=== PATIENT | female | born 1990 | race Caucasian/White ===

== ENCOUNTER → 2020-04-24 | Outpatient (CLI) | payer OTHER ==
[2020-04-24 19:28] LABS: CHLAMYDIA DNA AMPLIFICATION NEGATIVE (NEGATIVE); GC DNA AMPLIFICATION NEGATIVE (NEGATIVE)
== END ==
LOC: M PLALAB 08:27
PROVIDERS: ATTEND Obstetrics & Gynecology
DX: Z12.4 Encounter for screening for malignant neoplasm of cervix (principal); N97.9 Female infertility, unspecified
CPT/HCPCS: 36415; 83516; 84443; 87661; G0123

== ENCOUNTER → 2020-06-14 | Outpatient (CLI) | payer OTHER ==
[~2020-06-14] MED LIST: ISOVUE-370 76% 100ML VIAL As Ordered ONE
--- NOTE | 2020-06-14 13:26 | REP ---
INDICATION: INFERTILITY. COMPARISON: None. TECHNIQUE: The endometrium is cannulated by the attending dispatch supervisor. Fluoroscopic guidance is provided during contrast injection and intermittent spot filming is acquired. 0.5 minutes of fluoroscopy time is utilized. FINDINGS: There is opacification of a normal shaped endometrial cavity. No filling defect or synechia is appreciated. The isthmic and ampullary segments of fallopian tubes opacify promptly and symmetrically. Bilateral tubal patency is documented. IMPRESSION: Normal hysterosalpingogram documenting bilateral tubal patency. <Electronically signed by Scott Batres > 06/14/20 [id number]
== END ==
LOC: M RADPRO 11:58
PROVIDERS: ATTEND Obstetrics & Gynecology
DX: N97.9 Female infertility, unspecified (principal)
CPT/HCPCS: 58340; 74740; Q9967

== ENCOUNTER → 2021-02-05 | Outpatient (CLI) | payer OTHER ==
--- NOTE | 2021-02-05 11:25 | REP ---
INDICATION: INFERTILITY COMPARISON: None. TECHNIQUE: Transvaginal B-mode ultrasound examination. FINDINGS: Heterogeneous myomatous uterus measures 7.2 x 3.6 x 5.0 cm and includes right anterior intramural fibroid measuring 7 mm maximal diameter, pedunculated right lateral fibroid measuring 1.6 cm maximal diameter, and left anterior subserosal fibroid measuring 1.1 cm maximal diameter. Endometrial complex is normal in appearance and measures 4 mm thickness. Right ovary measures 2.5 x 1.5 x 3.1 cm and includes approximately 26 subcentimeter follicles between 1.1 and 8.5 mm; R I = 0.65. Left ovary measures 2.4 x 2.2 x 3.0 cm and includes approximately 14 subcentimeter follicles between 1.5 and 8.4 mm; R I = 0.49. No pelvic fluid or adnexal mass lesion IMPRESSION: 1. Anteverted uterus with myomatous changes as described above. 2. Bilateral ovaries containing subcentimeter follicles. <Electronically signed by Jay Mohan > 02/05/21 [id number]
[2021-02-05 11:57] LABS: HCG, SERUM QUANTITATIVE < 1.0 MIU/ML
[2021-02-05 12:03] LABS: PROGESTERONE 0.32 NG/ML
[2021-02-05 12:04] LABS: ESTRADIOL 22.4 PG/ML; FOLLICLE STIMULATING HORMONE 7.2 mIU/mL; LUTEINIZING HORMONE 5.4 mIU/mL
== END ==
LOC: M RAD 09:57
PROVIDERS: ATTEND Obstetrics & Gynecology Reproductive Endocrinology
DX: Z31.83 Encounter for assisted reproductive fertility procedure cycle (principal)

== ENCOUNTER → 2021-02-25 | Outpatient (CLI) | payer OTHER ==
--- NOTE | 2021-02-25 09:09 | REP ---
INDICATION: INFERTILITY- STAT LABS FIRST. COMPARISON: Comparison sonography February 05, 2021.. TECHNIQUE: Transvaginal pelvic sonography. FINDINGS: Uterine dimensions are normal at 7.7 x 3.8 x 5.0 cm. Endometrial stripe is 0.76 cm. There are several hypoechoic areas in the myometrium which may reflect fibroids. These measure 1.0, 0.7, and 1.7 cm in greatest diameter respectively. These presumed fibroids are unchanged. No free fluid is seen. The overall dimensions of the right ovary today are 3.7 x 2.0 x 3.7 cm. There are 5 follicles in right ovary greater than a cm measured as follows: 1.3 x 0.7, 1.4 x 0.7, 1.2 x 1.1, 1.4 x 0.5, and 1.1 x 0.7 cm. In addition, the right ovary contains 19 follicles ranging in size from 0.3-0.9 cm. The overall dimensions of the left ovary are 4.6 x 2.9 x 4.3 cm. There are 2 follicles in the left ovary greater than a cm measured as follows: 1.1 x 0.5 and 1.1 x 0.4 cm. In addition the left ovary contains approximately 35 follicles ranging in size from 0.3-0.9 cm. IMPRESSION: Several small fibroids. Ovarian follicle study as above. <Electronically signed by Scott Batres > 02/25/21 [id number]
[2021-02-25 11:01] LABS: LUTEINIZING HORMONE 0.4 mIU/mL; PROGESTERONE 1.69 NG/ML
== END ==
LOC: M RAD 07:49
PROVIDERS: ATTEND Obstetrics & Gynecology Reproductive Endocrinology
DX: N97.9 Female infertility, unspecified (principal)

== ENCOUNTER → 2021-02-27 | Outpatient (CLI) | payer OTHER ==
--- NOTE | 2021-02-27 09:27 | REP ---
INDICATION: INFERTILITY- STAT LABS FIRST. COMPARISON: 02/25/2021 TECHNIQUE: Endovaginal probe examination. FINDINGS: Uterus is anteverted measuring 7.8 x 3.8 x 4.6 cm. A subserosal fundal hypoechoic focus 1.8 x 1.7 x 1.3 cm. Towards the left is a 9 mm hypoechoic focus and in the midline a 5 x 5 mm focus all suggesting fibroids. The endometrial stripe has a normal 3 line appearance and thickness of 6 mm overall. A trace amount of free fluid in the cul-de-sac. Right ovary: 5.2 x 3.5 x 5 cm. The technologist today has documented 36 follicles at 10 mm or greater size. The largest of these are 18 mm, most are in the 10-13 mm range. In addition there were 33 follicles in the 2-9 mm range. Left ovary: 5.7 x 3.8 x 3.7 cm. The technologist today as documented 32 follicles at 10 mm or greater size. The 2 largest are 23 and 20 mm with several at 15-17 mm and the remainder at 10-14 mm. In addition there were 33 follicles in the 3-9 mm range. IMPRESSION: 1. Significant change in the ovarian appearance since 2 days ago now with 36 follicles greater than 10 mm size on the right and 32 follicles at 10 mm or greater size on the left. There also 33 right and left sided follicles that are subcentimeter. Trace free fluid. 2. Uterus anteverted with normal endometrial stripe. There is a serosal fundal fibroid 1.8 x 1.7 cm and 2 other sub cm hypoechoic foci in the uterus suggesting fibroids. <Electronically signed by Albaro Ruiz > 02/27/21 0924
[2021-02-27 09:51] LABS: ESTRADIOL 2514.6 PG/ML; LUTEINIZING HORMONE < 0.1 mIU/mL; PROGESTERONE 3.76 NG/ML
== END ==
LOC: M RAD 08:15
PROVIDERS: ATTEND Obstetrics & Gynecology Reproductive Endocrinology
DX: N97.9 Female infertility, unspecified (principal)

== ENCOUNTER → 2021-03-01 | Outpatient (CLI) | payer OTHER ==
--- NOTE | 2021-03-01 10:10 | REP ---
INDICATION: OVARIAN DYSFUNCTION *STAT LABS 1ST, STAT US 2ND*. COMPARISON: Two days ago TECHNIQUE: Transvaginal scanning FINDINGS: The uterus is unchanged. The right ovary measures 4.1 x 4.7 x 6 cm and the left ovary measures 6.2 x 4.7 x 4.9 cm. Previously, the right ovary measured 5.2 x 3.5 x 5 cm and the left ovary measured 5.7 x 3.8 x 3.7 cm. In the right ovary there are 17 follicles in the 2-9 mm range and in the left ovary there are 23 follicles in the 3-9 mm range. In the right ovary there are 25 follicles in the 1-2 cm range and in the left ovary there are 39 follicles in the 1-2 cm range. IMPRESSION: As above <Electronically signed by Sheldon Mcmansu > 03/01/21 [id number]
[2021-03-01 10:48] LABS: ESTRADIOL 5582.6 PG/ML; LUTEINIZING HORMONE < 0.1 mIU/mL; PROGESTERONE 6.33 NG/ML
== END ==
LOC: M RAD 09:01
PROVIDERS: ATTEND Obstetrics & Gynecology Reproductive Endocrinology
DX: E28.9 Ovarian dysfunction, unspecified (principal); Z20.822 Contact with and (suspected) exposure to COVID-19
CPT/HCPCS: 36415; 76830; 82670; 83002; 84144; U0003

== ENCOUNTER → 2021-03-01 | Outpatient (CLI) | payer OTHER | LOC: M LABSMTC 09:58 | PROVIDERS: ATTEND Obstetrics & Gynecology Reproductive Endocrinology | DX: Z20.822 Contact with and (suspected) exposure to COVID-19 (principal) ==

== ENCOUNTER → 2021-04-16 | Outpatient (CLI) | payer OTHER ==
--- NOTE | 2021-04-16 09:09 | REP ---
INDICATION: INFERTILITY-LAB 1ST COMPARISON: 03/01/2021 TECHNIQUE: Transvaginal examination for better evaluation of the endometrium and adnexa. FINDINGS: Anteverted uterus measures 7.3 x 3.5 x 4.9 cm. The endometrial complex measures 6.1 mm thickness excluding trace amount of endocervical fluid. Subcentimeter anterior intramural fibroid measuring 7 mm maximal diameter identified along with 2.1 cm right fundal exophytic/subserosal fibroid noted. Right ovary measures 2.4 x 1.5 x 2.0 cm and includes 10.3 x 7.4 mm and 10.8 x 9.6 mm follicles along with 20 subcentimeter follicles measuring between 2.0 and 6.8 mm. Left ovary measures 3.0 x 2.4 x 1.8 cm and includes approximately 21 subcentimeter follicles between 1.9 and 6.4 mm. IMPRESSION: Suspected myomatous changes to the uterus. Primarily subcentimeter follicles noted bilaterally. <Electronically signed by Jay Mohan > 04/16/21 0930
[2021-04-16 10:11] LABS: HCG, SERUM QUANTITATIVE < 1.0 MIU/ML
[2021-04-16 10:18] LABS: LUTEINIZING HORMONE 4.9 mIU/mL; PROGESTERONE 0.21 NG/ML
[2021-04-16 10:19] LABS: FOLLICLE STIMULATING HORMONE 6.1 mIU/mL
== END ==
LOC: M RAD 08:15
PROVIDERS: ATTEND Obstetrics & Gynecology Reproductive Endocrinology
DX: N97.9 Female infertility, unspecified (principal)

== ENCOUNTER → 2021-04-23 | Outpatient (CLI) | payer OTHER ==
--- NOTE | 2021-04-23 09:00 | REP ---
INDICATION: INFERTILITY- STAT LABS FIRST. COMPARISON: 04/16/2021. TECHNIQUE: Transvaginal pelvic ultrasound follicle study performed. FINDINGS: The uterus measures 7.9 x 3.1 x 4.8 cm. The endometrial echo complex measures 9 mm in AP dimension. Fibroid changes are again seen of the uterus, a right lateral fibroid measures 2 cm in diameter. The right ovary measures 2.9 x 1.9 x 2.7 cm. Multiple subcentimeter follicles are seen, approximately 12 follicles measure between 2 and 9 mm. Left ovary measures 2.6 x 2.0 x 2.7 cm. Multiple subcentimeter follicles are seen, approximately 11 follicles measure between 3 and 7 mm. IMPRESSION: Multiple subcentimeter follicles seen in both ovaries, with no follicle greater than 1 cm. <Electronically signed by Dheeraj Membreno > 04/23/21 [id number]
[2021-04-23 09:39] LABS: ESTRADIOL 101.6 PG/ML; LUTEINIZING HORMONE 7.7 mIU/mL; PROGESTERONE 0.21 NG/ML
== END ==
LOC: M RAD 08:05
PROVIDERS: ATTEND Obstetrics & Gynecology Reproductive Endocrinology
DX: Z31.83 Encounter for assisted reproductive fertility procedure cycle (principal)

== ENCOUNTER → 2021-05-06 | Outpatient (CLI) | payer OTHER ==
[2021-05-06 10:15] LABS: ESTRADIOL 164.1 PG/ML; PROGESTERONE 48.6 NG/ML
== END ==
LOC: M LAB 07:43
PROVIDERS: ATTEND Obstetrics & Gynecology Reproductive Endocrinology
DX: Z31.49 Encounter for other procreative investigation and testing (principal)

== ENCOUNTER → 2021-05-10 | Outpatient (CLI) | payer OTHER ==
[2021-05-10 10:20] LABS: PROGESTERONE 42.55 NG/ML
== END ==
LOC: M LAB 08:39
PROVIDERS: ATTEND Obstetrics & Gynecology Reproductive Endocrinology
DX: Z32.00 Encounter for pregnancy test, result unknown (principal)

== ENCOUNTER → 2021-05-13 | Outpatient (CLI) | payer OTHER ==
[2021-05-13 09:00] LABS: THYROID STIMULATING HORMONE 0.77 uIU/ML (0.358-3.740)
[2021-05-13 11:45] LABS: ESTRADIOL 97.8 PG/ML; PROGESTERONE 44.66 NG/ML
== END ==
LOC: M LAB 07:41
PROVIDERS: ATTEND Obstetrics & Gynecology Reproductive Endocrinology
DX: O09.00 Supervision of pregnancy with history of infertility, unspecified trimester (principal); Z3A.00 Weeks of gestation of pregnancy not specified

== ENCOUNTER → 2021-05-20 | Outpatient (CLI) | payer OTHER ==
--- NOTE | 2021-05-20 16:43 | REP ---
INDICATION: ULTRASOUND - LABS AFTER. COMPARISON: None. TECHNIQUE: Transvaginal ultrasound FINDINGS: The uterus measures 7.2 x 4.4 x 5.2 cm. There appear to be 2 intrauterine gestational sacs with a tiny anechoic structure seen in each of the gestational sacs consistent with yolk sacs. The twin gestation appears to be in the left cornua. No definite pole is seen with in either gestational sac. Doppler interrogation of each gestational sac shows no evidence of cardiac activity. The mean gestational sac diameter of which the technologist labeled as gestation A is consistent with a 4 week 3 day gestational age due to its 6 mm size gestational sac B measured 4 mm and was too small for an estimated gestational age. IMPRESSION: Evidence of early dichorionic diamniotic twin gestation, however, close follow-up is recommended. <Electronically signed by Sheldon Mcmanus > 05/20/21 [id number]
[2021-05-20 18:52] LABS: ESTRADIOL 241.3 PG/ML; PROGESTERONE 33.7 NG/ML
== END ==
LOC: M RAD 15:26
PROVIDERS: ATTEND Obstetrics & Gynecology Reproductive Endocrinology
DX: Z32.01 Encounter for pregnancy test, result positive (principal)

== ENCOUNTER → 2021-05-27 | Outpatient (CLI) | payer OTHER ==
[2021-05-27 13:08] LABS: ESTRADIOL 247.3 PG/ML; PROGESTERONE 31.5 NG/ML
--- NOTE | 2021-05-27 13:53 | REP ---
INDICATION: PREG, 1ST TRI/ LABS 1ST, US 2ND. COMPARISON: 05/20/2021. TECHNIQUE: Transvaginal pelvic ultrasound performed. FINDINGS: There is a living dichorionic diamniotic twin gestation. Estimated gestational age is 5 weeks 6 days, EDC 01/21/2022. Multiple uterine fibroids are present. The largest is in the right fundus measuring 2.3 x 2.0 x 2.2 cm. The ovaries are normal in appearance, blood flow is seen in each ovary with duplex Doppler evaluation, with no torsion. Fetus a crown-rump length 8 mm corresponds to 6 weeks 5 days gestational age, heart rate 126 beats per minute. Fetus B crown-rump length 6 mm corresponds to 6 weeks 3 days gestational age, heart rate 122 beats per minute. There is no subchorionic hemorrhage. IMPRESSION: Live intrauterine diamniotic dichorionic twin gestation. <Electronically signed by Dheeraj Membreno > 05/27/21 [id number]
== END ==
LOC: M RAD 11:31
PROVIDERS: ATTEND Obstetrics & Gynecology Reproductive Endocrinology
DX: O30.041 Twin pregnancy, dichorionic/diamniotic, first trimester (principal); O09.00 Supervision of pregnancy with history of infertility, unspecified trimester; O34.11 Maternal care for benign tumor of corpus uteri, first trimester; Z3A.01 Less than 8 weeks gestation of pregnancy

== ENCOUNTER → 2021-06-03 | Outpatient (CLI) | payer OTHER ==
--- NOTE | 2021-06-03 08:28 | REP ---
INDICATION: (+) PREG W/ H/O INFERTILITY EVAL- LABS AFTER. COMPARISON: 05/27/2021 TECHNIQUE: Endovaginal probe FINDINGS: The study again shows a dichorionic diamniotic twin . Fetus A shows a crown-rump length of 1.6 cm corresponding to 8 weeks. There is a gestational sac with a yolk sac within. heart activity noted at 163 bpm. No evidence of a subchorionic bleed. Fetus B shows a crown-rump length of 1.1 cm corresponding to 7 weeks 2 days. heart activity is 150 bpm with a gestational sac containing a yolk sac. No subchorionic bleed around twin B sac. Again noted are multiple of fibroids present, the largest towards the right side of the fundus 2.5 x 2.5 cm. IMPRESSION: 1. Dichorionic diamniotic twin gestation with twin A measuring at 8 weeks gestation and with heart rate 163. Twin B measuring at 7 weeks 2 days gestation with heart rate 150. 2. No subchorionic bleed. Yolk sacs are identified. 3. Multiple fibroids again noted. <Electronically signed by Albaro Ruiz > 06/03/21 0807
[2021-06-03 12:58] LABS: ESTRADIOL 329.4 PG/ML; PROGESTERONE 49.39 NG/ML
== END ==
LOC: M RAD 07:12
PROVIDERS: ATTEND Obstetrics & Gynecology Reproductive Endocrinology
DX: Z32.01 Encounter for pregnancy test, result positive (principal)

== ENCOUNTER 2021-10-08 12:41 | Outpatient (CLI) | payer OTHER ==
[~2021-10-08] VITALS: Ht 172.7 cm; Wt 71.2 kg
[2021-10-08] MEDS ORDERED: SILVER NITRATE APPLICATOR TOP ONE (14:15)
== END 2021-10-08 15:25 | disposition home or self-care (01) ==
LOC: M LDO 12:41
PROVIDERS: ATTEND Obstetrics & Gynecology
DX: O26.852 Spotting complicating pregnancy, second trimester (principal); O30.042 Twin pregnancy, dichorionic/diamniotic, second trimester; O32.1XX1 Maternal care for breech presentation, fetus 1; O32.1XX2 Maternal care for breech presentation, fetus 2; Z98.870 Personal history of in utero procedure during pregnancy; Z3A.25 25 weeks gestation of pregnancy
CPT/HCPCS: 59025; G0463

== ENCOUNTER → 2021-11-06 | Outpatient (CLI) | payer OTHER ==
[2021-11-06 13:28] LABS: HEMATOCRIT 33.9 % (36.0-47.0); HEMOGLOBIN 11.2 g/dl (12.0-15.5); MEAN CORPUSCULAR HEMOGLOBIN 29.2 pg (27.0-33.0); MEAN CORPUSCULAR VOLUME 88.5 fl (80.0-96.0); PLATELET COUNT, AUTOMATED 267 10^3/uL (150-450); RED BLOOD COUNT 3.83 10^6/uL (4.00-5.40); WHITE BLOOD COUNT 9.4 10^3/uL (4.0-10.0)
== END ==
LOC: M PLALAB 08:40
PROVIDERS: ATTEND Obstetrics & Gynecology
DX: O09.813 Supervision of pregnancy resulting from assisted reproductive technology, third trimester (principal)

== ENCOUNTER → 2021-11-12 | Outpatient (CLI) | payer OTHER | LOC: M LAB 07:09 | PROVIDERS: ATTEND Obstetrics & Gynecology | DX: O30.043 Twin pregnancy, dichorionic/diamniotic, third trimester (principal); Z3A.00 Weeks of gestation of pregnancy not specified ==

== ENCOUNTER → 2021-11-20 | Outpatient (CLI) | payer OTHER | LOC: M WHC 10:57 | PROVIDERS: ATTEND Obstetrics & Gynecology | DX: O30.043 Twin pregnancy, dichorionic/diamniotic, third trimester (principal); Z3A.31 31 weeks gestation of pregnancy ==

== ENCOUNTER → 2021-12-10 | Outpatient (CLI) | payer OTHER | LOC: M WHC 14:16 | PROVIDERS: ATTEND Obstetrics & Gynecology | DX: O30.043 Twin pregnancy, dichorionic/diamniotic, third trimester (principal); Z3A.35 35 weeks gestation of pregnancy ==

== ENCOUNTER → 2021-12-16 | Outpatient (REF) | payer OTHER | LOC: M PLALAB 09:39 | PROVIDERS: ATTEND Advanced Practice Midwife | DX: Z53.9 Procedure and treatment not carried out, unspecified reason (principal) ==

== ENCOUNTER → 2021-12-16 | Outpatient (REF) | payer OTHER ==
[~2021-12-16] MED LIST changes: +ECOT81TA5 PO; -ISOVUE-370 76% 100ML VIAL As Ordered ONE; +PRENTAB9 PO; +TUMS500C PO
== END ==
LOC: M SFHCWAGY 12:51
PROVIDERS: ATTEND Advanced Practice Midwife
DX: Z36.85 Encounter for antenatal screening for Streptococcus B (principal)
CPT/HCPCS: 87081; G0463

== ENCOUNTER 2021-12-21 21:39 | Inpatient (IN) | payer OTHER ==
[~2021-12-21] VITALS: Ht 172.7 cm; Wt 77.3 kg
[2021-12-21 22:10] VITALS: BP 130/82
[2021-12-21] MEDS ORDERED: ECOT81TA5 PO (22:10)
[2021-12-21] MEDS ORDERED: TUMS500C PO (22:10)
[2021-12-21] MEDS ORDERED: PRENTAB9 PO (22:10)
[2021-12-21] MEDS ORDERED: CARBOPROST TROMETHAMINE 250 MCG/ML AMP IM PRN (22:50)
[2021-12-21] MEDS ORDERED: TRANEXAMIC ACID INJection 1,000 MG in NS 100 ML IV PRN (22:50)
[2021-12-21] MEDS ORDERED: OXYTOCIN DRIP 30 UNITS in IV 1 EA IV PRN ×4 (22:50)
[2021-12-21] MEDS ORDERED: LACTATED RINGER'S 1000 ML IV PRN (22:50)
[2021-12-21] MEDS ORDERED: METHYLERGONOVINE MALEATE 0.2 MG/ML VIAL (J2210) IM PRN (22:50)
[2021-12-21 23:43] LABS: HEMATOCRIT 31.3 % (36.0-47.0); HEMOGLOBIN 10.2 g/dl (12.0-15.5); MEAN CORPUSCULAR HEMOGLOBIN 26.2 pg (27.0-33.0); MEAN CORPUSCULAR HGB CONC 32.6 g/dl (32.0-36.5); MEAN CORPUSCULAR VOLUME 80.5 fl (80.0-96.0); PLATELET COUNT, AUTOMATED 293 10^3/uL (150-450); RED BLOOD COUNT 3.89 10^6/uL (4.00-5.40); WHITE BLOOD COUNT 11.3 10^3/uL (4.0-10.0)
[2021-12-22] VITALS (78 sets, daily range): BP systolic 92–140; BP diastolic 55–86
[2021-12-22] MEDS ORDERED: OXYTOCIN DRIP 30 UNITS in IV 1 EA IV SCH ×2 (01:50→23:30)
[2021-12-22] MEDS: LR 1,000 ML IV SCH ×3 (03:45→15:14)
[2021-12-22] MEDS ORDERED: FENTANYL 2MCG/ML ROPIVACAINE 0.2% IN 0.9% NACL 100ML IVBAG As Ordered ONE (08:20)
[2021-12-22] MEDS ORDERED: NALOXONE INJ 0.4MG/1ML VIAL (J2310 PER 1MG) IV PRN (09:05)
[2021-12-22] MEDS ORDERED: LACTATED RINGER'S 1000 ML IV PRN (09:05)
[2021-12-22] MEDS ORDERED: EPIDURAL/PCA KEYS XX PRN (09:05)
[2021-12-22] MEDS ORDERED: EPIDURAL COMMENT XX SCH (09:05)
[2021-12-22] MEDS ORDERED: ONDANSETRON 4MG/2ML VIAL IV PRN (09:05)
[2021-12-22] MEDS ORDERED: REFRIGERATOR IV KEYS XX PRN (09:05)
[2021-12-22] MEDS ORDERED: diphenhydrAMINE 50MG/ML VIAL (J1200) IV PRN (09:05)
[2021-12-22] MEDS ORDERED: ePHEDrine SULFATE 25 MG/5 ML(5MG/ML) SYRINGE IV PRN (09:05)
[2021-12-22] MEDS: FENTANYL/ROPIVACAINE/NACL BAG 100 ML EPIDURAL SCH ×2 (09:21→16:34)
[2021-12-22] MEDS ORDERED: diphenhydrAMINE 50MG/ML VIAL (J1200) IV ONE ×2 (11:50→17:35)
[2021-12-23] VITALS (21 sets, daily range): BP systolic 94–136; BP diastolic 53–84
[2021-12-23] MEDS: FENTANYL/ROPIVACAINE/NACL BAG 100 ML EPIDURAL SCH (00:18)
[2021-12-23] MEDS: LR 1,000 ML IV SCH (01:27)
[2021-12-23] MEDS ORDERED: LIDOCAINE 2% W/EPINEPHRINE 20ML VIAL **PRES FREE As Ordered ONE (02:51)
[2021-12-23] MEDS ORDERED: BICITRA 30ML SOLN UDC As Ordered ONE (02:56)
[2021-12-23] MEDS ORDERED: AZITHROMYCIN INJ 500MG VIAL As Ordered ONE (02:56)
[2021-12-23] MEDS ORDERED: ceFAZolin 2 GM/D5W 50 ML IV BAG (J0690 PER 500MG) As Ordered ONE (02:56)
[2021-12-23] MEDS ORDERED: fentaNYL 100 MCG/2 ML INJECTION IV PRN (03:10)
[2021-12-23] MEDS ORDERED: oxyCODONE 5MG TAB PO PRN (03:10)
[2021-12-23] MEDS ORDERED: ONDANSETRON 4MG/2ML VIAL IV PRN ×3 (03:10→04:30)
[2021-12-23] MEDS ORDERED: MEPERIDINE INJ 25 MG/ML VIAL (J2175) IV PRN (03:10)
[2021-12-23] MEDS ORDERED: HYDROMORPHONE HCL 0.5 MG/ 0.5 ML SYRINGE (J1170 PER 1) IV PRN (03:10)
[2021-12-23] MEDS ORDERED: fentaNYL 100 MCG/2 ML INJECTION As Ordered ONE (03:32)
[2021-12-23] MEDS ORDERED: ONDANSETRON 4MG/2ML VIAL As Ordered ONE (03:49)
[2021-12-23] MEDS ORDERED: dexameTHASONE 4 MG/ML 1ML VIAL (J1100 PER 1MG) As Ordered ONE (03:49)
[2021-12-23] MEDS ORDERED: BUPIVACAINE HCL 0.25% 10ML VIAL SC ONE (03:50)
[2021-12-23] MEDS ORDERED: OXYTOCIN INJ 10 UNITS/ML VIAL (J2590) As Ordered ONE ×2 (03:57→04:25)
[2021-12-23] MEDS ORDERED: NALOXONE INJ 0.4MG/1ML VIAL (J2310 PER 1MG) IV PRN ×2 (03:58)
[2021-12-23] MEDS ORDERED: METOCLOPRAMIDE INJ 10MG/2ML VIAL (J2765 PER 1) IV PRN (03:58)
[2021-12-23] MEDS ORDERED: diphenhydrAMINE 50MG/ML VIAL (J1200) IV PRN (03:58)
[2021-12-23] MEDS ORDERED: MORPHINE PRES-FREE INJ 10 MG/10 ML VIAL As Ordered ONE (04:26)
[2021-12-23] MEDS ORDERED: KETOROLAC 60MG 2ML VIAL As Ordered ONE (04:27)
[2021-12-23] MEDS ORDERED: RHOGAM 300 MCG (1500 IU) INJ (J2790) IM SCH (04:30)
[2021-12-23] MEDS ORDERED: DOCUSATE SODIUM 100MG CAPSULE PO PRN (04:30)
[2021-12-23] MEDS ORDERED: MEASLES,MUMPS,RUBELLA VACCINE INJ (MMR-II) (90707) SC SCH (04:30)
[2021-12-23] MEDS ORDERED: OXYTOCIN DRIP 30 UNITS in IV 1 EA IV SCH (04:30)
[2021-12-23 04:54] LABS: HEMATOCRIT 28.2 % (36.0-47.0); HEMOGLOBIN 8.8 g/dl (12.0-15.5); MEAN CORPUSCULAR HEMOGLOBIN 25.7 pg (27.0-33.0); MEAN CORPUSCULAR HGB CONC 31.2 g/dl (32.0-36.5); MEAN CORPUSCULAR VOLUME 82.5 fl (80.0-96.0); PLATELET COUNT, AUTOMATED 225 10^3/uL (150-450); RED BLOOD COUNT 3.42 10^6/uL (4.00-5.40); WHITE BLOOD COUNT 20.3 10^3/uL (4.0-10.0)
[2021-12-23] MEDS ORDERED: OXYTOCIN 30 UNITS IN 0.9% NaCl 500ML IV BAG (J2590) As Ordered ONE (04:59)
[2021-12-23 05:09] LABS: INR 1.01; PARTIAL THROMBOPLASTIN TIME 25.6 SECONDS (25.9-37.0); PROTHROMBIN TIME 13.7 SECONDS (12.7-14.5)
[2021-12-23] MEDS: ACETAMINOPHEN 500 MG TAB PO SCH ×4 (05:36→22:08)
[2021-12-23] MEDS: PRENATAL VITAMINS CHEWABLE TABLET PO SCH (09:00)
[2021-12-23] MEDS ORDERED: METHYLERGONOVINE MALEATE 0.2 MG/ML VIAL (J2210) ONE (10:35)
[2021-12-23] MEDS: KETOROLAC 30 MG/ML 1ML VIAL IV SCH ×3 (10:55→22:08)
[2021-12-24 02:00] VITALS: BP 110/69
[2021-12-24] MEDS: ACETAMINOPHEN 500 MG TAB PO SCH ×4 (05:14→22:54)
[2021-12-24 05:47] VITALS: BP 104/58
[2021-12-24] MEDS: oxyCODONE 5MG TAB PO PRN ×3 (06:04→18:43)
[2021-12-24] MEDS: ENOXAPARIN 40MG/0.4ML SYRINGE (J1650 PER 10MG) SC SCH (06:05)
[2021-12-24] MEDS: IBUPROFEN 600MG TAB PO SCH ×3 (07:11→18:42)
[2021-12-24 07:47] LABS: HEMOGLOBIN 9.3 g/dl (12.0-15.5); MEAN CORPUSCULAR HEMOGLOBIN 26.6 pg (27.0-33.0); MEAN CORPUSCULAR HGB CONC 32.1 g/dl (32.0-36.5); MEAN CORPUSCULAR VOLUME 83.1 fl (80.0-96.0); PLATELET COUNT, AUTOMATED 225 10^3/uL (150-450); RED BLOOD COUNT 3.49 10^6/uL (4.00-5.40); WHITE BLOOD COUNT 15.9 10^3/uL (4.0-10.0)
[2021-12-24] MEDS ORDERED: BOOSTRIX/ADACEL VACCINE (DIPHTH/PERTUSS/ACELL/TETANUS) 0.5ML SYR IM ONE (09:00)
[2021-12-24] MEDS: PRENATAL VITAMINS CHEWABLE TABLET PO SCH (09:00)
[2021-12-24 10:00] VITALS: BP 111/87
[2021-12-24] MEDS: SIMETHICONE 80MG CHEW TAB PO PRN ×2 (11:26→18:41)
[2021-12-24 18:06] VITALS: BP 134/92
[2021-12-24 22:00] VITALS: BP 121/68
[2021-12-25] MEDS: IBUPROFEN 600MG TAB PO SCH ×4 (01:17→18:40)
[2021-12-25] MEDS: SIMETHICONE 80MG CHEW TAB PO PRN ×2 (01:22→17:53)
[2021-12-25] MEDS: oxyCODONE 5MG TAB PO PRN ×4 (01:22→17:53)
[2021-12-25 02:00] VITALS: BP 121/85
[2021-12-25] MEDS: ACETAMINOPHEN 500 MG TAB PO SCH ×4 (05:11→22:27)
[2021-12-25] MEDS: ENOXAPARIN 40MG/0.4ML SYRINGE (J1650 PER 10MG) SC SCH (05:12)
[2021-12-25 06:00] VITALS: BP 139/85
[2021-12-25 10:00] VITALS: BP 122/56
[2021-12-25] MEDS: PRENATAL VITAMINS CHEWABLE TABLET PO SCH (10:02)
[2021-12-25 17:57] VITALS: BP 135/78
[2021-12-26] MEDS: IBUPROFEN 600MG TAB PO SCH ×3 (00:38→12:07)
[2021-12-26] MEDS: oxyCODONE 5MG TAB PO PRN ×3 (00:39→13:29)
[2021-12-26] MEDS: ENOXAPARIN 40MG/0.4ML SYRINGE (J1650 PER 10MG) SC SCH (05:41)
[2021-12-26] MEDS: ACETAMINOPHEN 500 MG TAB PO SCH ×2 (05:41→11:10)
[2021-12-26 06:00] VITALS: BP 117/73
[2021-12-26] MEDS: PRENATAL VITAMINS CHEWABLE TABLET PO SCH (07:55)
[2021-12-26 08:27] LABS: HEMOGLOBIN 9.9 g/dl (12.0-15.5); MEAN CORPUSCULAR HEMOGLOBIN 26.9 pg (27.0-33.0); MEAN CORPUSCULAR HGB CONC 30.9 g/dl (32.0-36.5); PLATELET COUNT, AUTOMATED 304 10^3/uL (150-450); RED BLOOD COUNT 3.68 10^6/uL (4.00-5.40); WHITE BLOOD COUNT 8.6 10^3/uL (4.0-10.0)
[2021-12-26] MEDS ORDERED: ACET-683 PO (09:23)
[2021-12-26] MEDS ORDERED: COLA100C5 PO (09:23)
[2021-12-26] MEDS ORDERED: OXYC-517 PO (09:23)
[2021-12-26] MEDS ORDERED: IBUP-1022 PO (09:23)
[2021-12-26] MEDS ORDERED: NORE0.353 PO (16:46)
== END 2021-12-26 14:50 | disposition home or self-care (01) | DRG 772 ==
LOC: M LDO 21:39 → M LDI 22:40 → M OBS 12-23 06:36
PROVIDERS: ADMIT Obstetrics & Gynecology; ATTEND Obstetrics & Gynecology
PROC: 10D00Z1 Extraction of Products of Conception, Low, Open Approach (ICD-10-PCS; principal; 2021-12-23 02:40)
DX: O60.14X0 Preterm labor third trimester with preterm delivery third trimester, not applicable or unspecified (principal); O72.1 Other immediate postpartum hemorrhage; O30.043 Twin pregnancy, dichorionic/diamniotic, third trimester; Z3A.36 36 weeks gestation of pregnancy; O62.0 Primary inadequate contractions; Z37.2 Twins, both liveborn

== ENCOUNTER → 2022-12-16 | Outpatient (REF) | payer OTHER ==
[~2022-12-16] MED LIST changes: +ACET-683 PO; +COLA100C5 PO; +IBUP-1022 PO; +NORE0.353 PO; +OXYC-517 PO
== END ==
LOC: M PLALAB 11:18
PROVIDERS: ATTEND Obstetrics & Gynecology
DX: Z12.4 Encounter for screening for malignant neoplasm of cervix (principal)
CPT/HCPCS: 87624; G0123; G0463

== ENCOUNTER → 2024-04-01 | Outpatient (CLI) | payer OTHER ==
[2024-04-01 18:06] LABS: HEMATOCRIT 40.9 % (36.0-47.0); HEMOGLOBIN 13.3 g/dl (12.0-15.5); MEAN CORPUSCULAR HEMOGLOBIN 27.1 pg (27.0-33.0); MEAN CORPUSCULAR HGB CONC 32.5 g/dl (32.0-36.5); MEAN CORPUSCULAR VOLUME 83.3 fl (80.0-96.0); PLATELET COUNT, AUTOMATED 279 10^3/uL (150-450); RED BLOOD COUNT 4.91 10^6/uL (4.00-5.40); WHITE BLOOD COUNT 6.5 10^3/uL (4.0-10.0)
[2024-04-01 18:39] LABS: ALBUMIN 4.2 G/DL (3.2-5.2); ALKALINE PHOSPHATASE 74 U/L (46-116); ALT/SGPT 17 U/L (7.0-40); AST/SGOT 10 U/L (<34); BILIRUBIN,TOTAL 0.3 MG/DL (0.3-1.2); BLOOD UREA NITROGEN 19 MG/DL (9-23); CALCIUM LEVEL 9.4 MG/DL (8.5-10.1); CARBON DIOXIDE LEVEL 25 MMOL/L (20-31); CHLORIDE LEVEL 106 MMOL/L (98-107); CREATININE FOR GFR 0.76 MG/DL (0.55-1.30); GLOMERULAR FILTRATION RATE > 60.0 (>60); GLUCOSE, FASTING 83 MG/DL (60-100); POTASSIUM SERUM 4.1 MMOL/L (3.5-5.1); SODIUM LEVEL 135 MMOL/L (136-145)
[2024-04-01 18:41] LABS: PROLACTIN 9.63 NG/ML
[2024-04-01 18:42] LABS: THYROID STIMULATING HORMONE 1.709 uIU/ML (0.55-4.78)
[2024-04-01 19:03] LABS: HEPATITIS B SURFACE ANTIGEN NEGATIVE (NEGATIVE)
[2024-04-01 19:15] LABS: HIV 1&2 SCREEN NEGATIVE (NEGATIVE)
[2024-04-05 22:23] LABS: ANTI MULLERIAN HORMONE 10.73 ng/mL (0.36-10.07)
== END ==
LOC: M PLALAB 14:19
PROVIDERS: ATTEND Obstetrics & Gynecology
DX: N97.9 Female infertility, unspecified (principal)

== ENCOUNTER → 2024-06-23 | Outpatient (CLI) | payer OTHER ==
[2024-06-23 16:22] LABS: ESTRADIOL 40.8 PG/ML; FOLLICLE STIMULATING HORMONE 7.3 mIU/ML; LUTEINIZING HORMONE 5.4 mIU/ML; PROGESTERONE 0.28 NG/ML; THYROID STIMULATING HORMONE 2.469 uIU/ML (0.55-4.78)
[2024-06-23 16:23] LABS: HCG, SERUM QUANTITATIVE < 2.6 MIU/ML (<4.2)
== END ==
LOC: M RAD 07:23
PROVIDERS: ATTEND Obstetrics & Gynecology Reproductive Endocrinology
DX: Z31.83 Encounter for assisted reproductive fertility procedure cycle (principal)

== ENCOUNTER → 2024-07-14 | Outpatient (CLI) | payer OTHER ==
[2024-07-14 09:01] LABS: ESTRADIOL 1136.4 PG/ML
[2024-07-14 09:02] LABS: PROGESTERONE 49.31 NG/ML
== END ==
LOC: M LAB 07:53
PROVIDERS: ATTEND Obstetrics & Gynecology Reproductive Endocrinology
DX: Z31.49 Encounter for other procreative investigation and testing (principal)

== ENCOUNTER → 2024-07-20 | Outpatient (CLI) | payer OTHER ==
[2024-07-20 07:30] LABS: THYROID STIMULATING HORMONE 1.732 uIU/ML (0.55-4.78)
[2024-07-20 07:31] LABS: ESTRADIOL 915.4 PG/ML
[2024-07-20 07:32] LABS: PROGESTERONE 50.32 NG/ML
== END ==
LOC: M LAB 06:32
PROVIDERS: ATTEND Obstetrics & Gynecology Reproductive Endocrinology
DX: Z32.01 Encounter for pregnancy test, result positive (principal)

== ENCOUNTER → 2024-08-02 | Outpatient (CLI) | payer OTHER | LOC: M WHC 07:07 | PROVIDERS: ATTEND Obstetrics & Gynecology Reproductive Endocrinology | DX: Z32.01 Encounter for pregnancy test, result positive (principal); Z3A.01 Less than 8 weeks gestation of pregnancy ==

== ENCOUNTER → 2024-08-02 | Outpatient (CLI) | payer OTHER ==
[2024-08-02 07:44] LABS: ESTRADIOL 1182.5 PG/ML; PROGESTERONE 42.38 NG/ML
[2024-08-02 07:56] LABS: HCG, SERUM QUANTITATIVE 21453.6 MIU/ML (<4.2)
== END ==
LOC: M LAB 06:37
PROVIDERS: ATTEND Obstetrics & Gynecology Reproductive Endocrinology
DX: Z32.01 Encounter for pregnancy test, result positive (principal)

== ENCOUNTER → 2024-09-06 | Outpatient (CLI) | payer OTHER | LOC: M WHC 12:51 | PROVIDERS: ATTEND Specialist | DX: O26.852 Spotting complicating pregnancy, second trimester (principal); Z3A.11 11 weeks gestation of pregnancy ==

== ENCOUNTER → 2024-11-07 | Outpatient (CLI) | payer OTHER | LOC: M WHC 08:26 | PROVIDERS: ATTEND Obstetrics & Gynecology | DX: O46.92 Antepartum hemorrhage, unspecified, second trimester (principal); Z3A.20 20 weeks gestation of pregnancy; O32.1XX0 Maternal care for breech presentation, not applicable or unspecified ==

== ENCOUNTER → 2024-11-10 | Outpatient (REF) | payer OTHER ==
[2024-11-10 18:11] LABS: APPEARANCE, URINE CLEAR (CLEAR); BACTERIA, URINE AUTO 1+ (NEGATIVE); BILIRUBIN, URINE AUTO NEGATIVE (NEGATIVE); BLOOD, URINE BLOOD NEGATIVE (NEGATIVE); COLOR, URINE STRAW (YELLOW); GLUCOSE, URINE (UA) AUTO NEGATIVE (NEGATIVE); KETONE, URINE AUTO NEGATIVE (NEGATIVE); LEUKOCYTE ESTERASE, URINE AUTO NEGATIVE (NEGATIVE); NITRITE, URINE AUTO NEGATIVE (NEGATIVE); PROTEIN, URINE AUTO NEGATIVE (NEGATIVE); RBC, URINE AUTO 0 /HPF (0-3); SPECIFIC GRAVITY URINE AUTO 1.005 (1.002-1.035); SQUAMOUS EPITHELIAL CELL UR AU 0 /HPF (0-6); UROBILINOGEN, URINE AUTO 0.2 mg/dL (0.0-2.0); WBC, URINE AUTO 0 /HPF (0-3)
== END ==
LOC: M PLALAB 16:17
PROVIDERS: ATTEND Obstetrics & Gynecology
DX: O46.90 Antepartum hemorrhage, unspecified, unspecified trimester (principal)

== ENCOUNTER → 2024-11-22 | Outpatient (CLI) | payer OTHER | LOC: M WHC 09:26 | PROVIDERS: ATTEND Obstetrics & Gynecology | DX: Z36.2 Encounter for other antenatal screening follow-up (principal); O32.1XX0 Maternal care for breech presentation, not applicable or unspecified; Z3A.22 22 weeks gestation of pregnancy ==